=== PATIENT | male | born 1945 | race Caucasian/White ===

== ENCOUNTER → 2017-05-26 | Outpatient (CLI) | payer MEDICARE, BC ==
[2017-05-26 20:09] LABS: ADD MANUAL DIFFER YES; DIFF SLIDE NUMBER 275; MEAN CORPUSCULAR HEMOGLOBIN 26.9 pg (27.0-33.0); MEAN CORPUSCULAR HGB CONC 32.1 g/dl (32.0-36.5); MEAN CORPUSCULAR VOLUME 83.8 fl (80.0-96.0); RED CELL DISTRIBUTION WIDTH 14.1 % (11.5-14.5); WHITE BLOOD COUNT 11.8 K/mm3 (4.0-10.0)
[2017-05-26 21:13] LABS: EOSINOPHILS 2 % (0-5)
[2017-05-26 21:14] LABS: PLATELET CLUMPS MODERATE AMT
== END ==
LOC: M LRY 13:53
PROVIDERS: ATTEND Internal Medicine
DX: D69.6 Thrombocytopenia, unspecified (principal)

== ENCOUNTER → 2022-06-19 | Outpatient (CLI) | payer MEDICARE, BC | LOC: M RAD 10:22 | PROVIDERS: ATTEND Internal Medicine | DX: N28.1 Cyst of kidney, acquired (principal); N40.0 Benign prostatic hyperplasia without lower urinary tract symptoms ==

== ENCOUNTER 2023-09-20 11:29 | Inpatient (IN) | payer MEDICARE, BC ==
[~2023-09-20] VITALS: Ht 177.8 cm; Wt 88.1 kg
[2023-09-20] MEDS ORDERED: METO1TAB32 PO (11:58)
[2023-09-20] MEDS: NS 1,000 ML IV SCH ×2 (12:40→20:09)
[2023-09-20] MEDS ORDERED: LIDOCAINE 2% 5ML JELLY UROJET TOP ONE (12:45)
[2023-09-20 13:00] LABS: APPEARANCE, URINE MANUAL TURBID (CLEAR); BILIRUBIN, URINE MANUAL OBSCURED (NEGATIVE); COLOR, URINE MANUAL RED (YELLOW); GLUCOSE, URINE (UA) MANUAL NEGATIVE (NEGATIVE); KETONE, URINE MANUAL OBSCURED mg/dL (NEGATIVE); PROTEIN, URINE MANUAL OBSCURED mg/dL (NEGATIVE); UROBILINOGEN, URINE MANUAL OBSCURED mg/dl (NORMAL)
[2023-09-20 13:01] LABS: BLOOD URINE MANUAL POSITIVE (NEGATIVE); LEUKOCYTE ESTERASE, URINE MAN OBSCURED (NEGATIVE); NITRITE, URINE MANUAL OBSCURED (NEGATIVE)
[2023-09-20 13:03] LABS: RBC, URINE TNTC /hpf (0-3); WBC, URINE NONE SEEN /hpf (0-3)
[2023-09-20 13:04] LABS: BACTERIA, URINE NONE SEEN; HYALINE CAST, URINE NONE SEEN /lpf (0-1); SQUAMOUS EPITHELIAL CELL URINE NONE SEEN /hpf (SMALL AMT)
[2023-09-20 13:29] LABS: BASO # 0.1 10^3/uL (0.0-0.2); BASO % 0.3 % (0.0-1.0); EOS % 0.1 % (0.0-3.0); HEMATOCRIT 46.4 % (42.0-52.0); HEMOGLOBIN 14.5 g/dl (13.5-17.5); LYMPH # 1.3 10^3/uL (1.5-5.0); LYMPH % 4.3 % (24.0-44.0); MEAN CORPUSCULAR HEMOGLOBIN 25.5 pg (27.0-33.0); MEAN CORPUSCULAR HGB CONC 31.3 g/dl (32.0-36.5); MEAN CORPUSCULAR VOLUME 81.5 fl (80.0-96.0); MONO # 0.8 10^3/uL (0.0-0.8); MONO % 2.7 % (2.0-8.0); NEUTROPHILS # 26.8 10^3/uL (1.5-8.5); NEUTROPHILS % 91.9 % (36.0-66.0); RED BLOOD COUNT 5.69 10^6/uL (4.30-6.10); WHITE BLOOD COUNT 29.2 10^3/uL (4.0-10.0)
[2023-09-20 13:47] LABS: INR 1.12
[2023-09-20 13:53] LABS: ALBUMIN 3.6 G/DL (3.2-5.2); BILIRUBIN,DIRECT 0.3 MG/DL (<0.4); BILIRUBIN,TOTAL 0.7 MG/DL (0.3-1.2); TOTAL PROTEIN 7.6 G/DL (5.7-8.2)
[2023-09-20] MEDS ORDERED: MED REC IN PROGRESS XX SCH (17:25)
[2023-09-20 18:53] LABS: C REACTIVE PROTEIN QUANTITATIV 2.9 MG/DL (<1.0)
[2023-09-20 18:55] LABS: BLOOD UREA NITROGEN 24 MG/DL (9-23); CARBON DIOXIDE LEVEL 25 MMOL/L (20-31); CHLORIDE LEVEL 103 MMOL/L (98-107); GLOMERULAR FILTRATION RATE > 60.0 (>35); GLUCOSE, FASTING 108 MG/DL (74-106); POTASSIUM SERUM 4.7 MMOL/L (3.5-5.1); SODIUM LEVEL 139 MMOL/L (136-145)
[2023-09-20 19:07] LABS: PROCALCITONIN 12.27 ng/ml
[2023-09-20 20:00] VITALS: BP 110/68; TEMP 98.1; O2SAT 95
[2023-09-20] MEDS: cefTRIAXone SOD 1 GM in D5W MINI-BAG PLUS 50 ML IV SCH (20:09)
[2023-09-20] MEDS ORDERED: KP F1200 PO (21:13)
[2023-09-20] MEDS ORDERED: VITMTA PO (21:14)
[2023-09-20] MEDS ORDERED: ASPI81TA26 PO (21:15)
[2023-09-20] MEDS ORDERED: HOME MED LIST COMPLETE! XX SCH (21:20)
[2023-09-21 05:30] VITALS: BP 117/68; TEMP 97.7; O2SAT 94
[2023-09-21 06:07] LABS: HEMATOCRIT 36.1 % (42.0-52.0); MEAN CORPUSCULAR HEMOGLOBIN 25.5 pg (27.0-33.0); MEAN CORPUSCULAR HGB CONC 31.3 g/dl (32.0-36.5); MEAN CORPUSCULAR VOLUME 81.3 fl (80.0-96.0); RED BLOOD COUNT 4.44 10^6/uL (4.30-6.10); WHITE BLOOD COUNT 23.9 10^3/uL (4.0-10.0)
[2023-09-21 06:38] LABS: ALBUMIN 2.6 G/DL (3.2-5.2); ALKALINE PHOSPHATASE 141 U/L (46-116); ALT/SGPT 31 U/L (7.0-40); AST/SGOT 25 U/L (<34); BILIRUBIN,TOTAL 0.7 MG/DL (0.3-1.2); BLOOD UREA NITROGEN 20 MG/DL (9-23); CALCIUM LEVEL 8.4 MG/DL (8.3-10.6); CARBON DIOXIDE LEVEL 27 MMOL/L (20-31); CHLORIDE LEVEL 105 MMOL/L (98-107); CREATININE FOR GFR 0.94 MG/DL (0.70-1.30); GLOMERULAR FILTRATION RATE > 60.0 (>35); GLUCOSE, FASTING 95 MG/DL (74-106); POTASSIUM SERUM 4.2 MMOL/L (3.5-5.1); SODIUM LEVEL 140 MMOL/L (136-145); TOTAL PROTEIN 5.8 G/DL (5.7-8.2)
[2023-09-21] MEDS: NS 1,000 ML IV SCH (06:38)
[2023-09-21 07:08] LABS: HEMOGLOBIN 11.3 g/dl (13.5-17.5)
[2023-09-21] MEDS: TAMSULOSIN 0.4 MG CAP PO SCH (08:25)
[2023-09-21] MEDS: MULTIVITAMINS/MINERALS THERAP 1 TAB PO SCH (08:25)
[2023-09-21] MEDS: OMEGA-3 1000MG CAPSULE PO SCH (08:26)
[2023-09-21] MEDS ORDERED: METOPROLOL SUCC *XL* 12.5MG PER 1/2 TAB (TopROL *XL*) PO SCH (09:00)
[2023-09-21 11:18] LABS: HEMATOCRIT 35.9 % (42.0-52.0); HEMOGLOBIN 11.2 g/dl (13.5-17.5)
[2023-09-21 11:32] LABS: PLTBLUE- EDTA FREE MACHINE 148 10^3/uL (172-450)
[2023-09-21 14:00] VITALS: BP 107/56; TEMP 97.7; O2SAT 88
[2023-09-21 17:22] LABS: HEMOGLOBIN 11.3 g/dl (13.5-17.5)
[2023-09-21] MEDS: cefTRIAXone SOD 1 GM in D5W MINI-BAG PLUS 50 ML IV SCH (17:39)
[2023-09-21 20:20] VITALS: BP 122/71; TEMP 97.9; O2SAT 95
[2023-09-21 23:27] LABS: HEMATOCRIT 35.1 % (42.0-52.0); HEMOGLOBIN 11.1 g/dl (13.5-17.5)
[2023-09-22 05:30] VITALS: BP 132/73; TEMP 97.3; O2SAT 97
[2023-09-22 06:09] LABS: BASO % 0.2 % (0.0-1.0); EOS # 0.5 10^3/uL (0.0-0.5); EOS % 3.7 % (0.0-3.0); HEMATOCRIT 36.7 % (42.0-52.0); HEMOGLOBIN 11.5 g/dl (13.5-17.5); LYMPH # 2.6 10^3/uL (1.5-5.0); LYMPH % 19.4 % (24.0-44.0); MEAN CORPUSCULAR HEMOGLOBIN 25.6 pg (27.0-33.0); MEAN CORPUSCULAR HGB CONC 31.3 g/dl (32.0-36.5); MEAN CORPUSCULAR VOLUME 81.7 fl (80.0-96.0); MONO % 7.5 % (2.0-8.0); NEUTROPHILS # 9.4 10^3/uL (1.5-8.5); NEUTROPHILS % 68.8 % (36.0-66.0); RED BLOOD COUNT 4.49 10^6/uL (4.30-6.10); WHITE BLOOD COUNT 13.6 10^3/uL (4.0-10.0)
[2023-09-22 06:24] LABS: BLOOD UREA NITROGEN 17 MG/DL (9-23); CALCIUM LEVEL 8.4 MG/DL (8.3-10.6); CARBON DIOXIDE LEVEL 28 MMOL/L (20-31); CHLORIDE LEVEL 105 MMOL/L (98-107); CREATININE FOR GFR 0.93 MG/DL (0.70-1.30); GLOMERULAR FILTRATION RATE > 60.0 (>35); GLUCOSE, FASTING 103 MG/DL (74-106); MAGNESIUM LEVEL 1.8 MG/DL (1.8-2.4); POTASSIUM SERUM 4.2 MMOL/L (3.5-5.1); SODIUM LEVEL 139 MMOL/L (136-145)
[2023-09-22] MEDS ORDERED: CEFD300C42 PO (08:12)
[2023-09-22] MEDS ORDERED: FLOM0.4C39 PO (08:12)
[2023-09-22] MEDS: OMEGA-3 1000MG CAPSULE PO SCH (08:50)
[2023-09-22] MEDS: MULTIVITAMINS/MINERALS THERAP 1 TAB PO SCH (08:50)
[2023-09-22] MEDS: TAMSULOSIN 0.4 MG CAP PO SCH (08:50)
== END 2023-09-22 12:49 | disposition home or self-care (01) | DRG 699 ==
LOC: M ED 11:29 → M ED INP 17:31 → M MSPAV 19:54
PROVIDERS: ADMIT Internal Medicine; ATTEND Internal Medicine
DX: S37.39XA Other injury of urethra, initial encounter (principal); N39.0 Urinary tract infection, site not specified; T19.0XXA Foreign body in urethra, initial encounter; R31.0 Gross hematuria; R00.0 Tachycardia, unspecified; D72.829 Elevated white blood cell count, unspecified; Z79.899 Other long term (current) drug therapy; Z88.2 Allergy status to sulfonamides; Z88.8 Allergy status to other drugs, medicaments and biological substances; R33.9 Retention of urine, unspecified; N40.1 Benign prostatic hyperplasia with lower urinary tract symptoms; Y93.89 Activity, other specified; Y99.8 Other external cause status; X58.XXXA Exposure to other specified factors, initial encounter; Y92.018 Other place in single-family (private) house as the place of occurrence of the external cause

== ENCOUNTER → 2024-05-01 | Outpatient (REF) | payer MEDICARE, BC ==
[~2024-05-01] MED LIST: ASPI81TA26 PO; CEFD1CAP9 PO; FLOM0.4C39 PO; KP F1200 PO; METO1TAB32 PO; VITMTA PO
[2024-05-01 13:16] LABS: APPEARANCE, URINE HAZY (CLEAR); BACTERIA, URINE AUTO 1+ (NEGATIVE); BILIRUBIN, URINE AUTO NEGATIVE (NEGATIVE); BLOOD, URINE BLOOD NEGATIVE (NEGATIVE); COLOR, URINE AMBER (YELLOW); GLUCOSE, URINE (UA) AUTO NEGATIVE (NEGATIVE); KETONE, URINE AUTO NEGATIVE (NEGATIVE); LEUKOCYTE ESTERASE, URINE AUTO 3+ (NEGATIVE); MUCUS, URINE SMALL (NEGATIVE); NITRITE, URINE AUTO POSITIVE (NEGATIVE); PROTEIN, URINE AUTO NEGATIVE (NEGATIVE); RBC, URINE AUTO 3 /HPF (0-3); SPECIFIC GRAVITY URINE AUTO 1.021 (1.002-1.035); SQUAMOUS EPITHELIAL CELL UR AU 1 /HPF (0-6); UROBILINOGEN, URINE AUTO 0.2 mg/dL (0.0-2.0); WBC, URINE AUTO 64 /HPF (0-3)
== END ==
LOC: M SMT 12:55
PROVIDERS: ATTEND Physician Assistant
DX: R82.90 Unspecified abnormal findings in urine (principal)

== ENCOUNTER → 2024-06-09 | Outpatient (REF) | payer MEDICARE, BC ==
[2024-06-09 18:10] LABS: APPEARANCE, URINE CLOUDY (CLEAR); BACTERIA, URINE AUTO 3+ (NEGATIVE); BILIRUBIN, URINE AUTO NEGATIVE (NEGATIVE); BLOOD, URINE BLOOD NEGATIVE (NEGATIVE); COLOR, URINE AMBER (YELLOW); GLUCOSE, URINE (UA) AUTO NEGATIVE (NEGATIVE); KETONE, URINE AUTO NEGATIVE (NEGATIVE); LEUKOCYTE ESTERASE, URINE AUTO 3+ (NEGATIVE); MUCUS, URINE SMALL (NEGATIVE); NITRITE, URINE AUTO POSITIVE (NEGATIVE); PROTEIN, URINE AUTO 1+ mg/dL (NEGATIVE); RBC, URINE AUTO 11 /HPF (0-3); SPECIFIC GRAVITY URINE AUTO 1.024 (1.002-1.035); SQUAMOUS EPITHELIAL CELL UR AU 4 /HPF (0-6); UROBILINOGEN, URINE AUTO 0.2 mg/dL (0.0-2.0); WBC, URINE AUTO 146 /HPF (0-3)
== END ==
LOC: M SMT 17:02
PROVIDERS: ATTEND Physician Assistant
DX: R30.0 Dysuria (principal)

== ENCOUNTER → 2024-06-29 | Outpatient (REF) | payer MEDICARE, BC ==
[2024-06-29 17:12] LABS: APPEARANCE, URINE CLOUDY (CLEAR); BACTERIA, URINE AUTO 3+ (NEGATIVE); BILIRUBIN, URINE AUTO NEGATIVE (NEGATIVE); BLOOD, URINE BLOOD 2+ (NEGATIVE); COLOR, URINE YELLOW (YELLOW); GLUCOSE, URINE (UA) AUTO NEGATIVE (NEGATIVE); KETONE, URINE AUTO NEGATIVE (NEGATIVE); LEUKOCYTE ESTERASE, URINE AUTO 3+ (NEGATIVE); MUCUS, URINE SMALL (NEGATIVE); NITRITE, URINE AUTO POSITIVE (NEGATIVE); PROTEIN, URINE AUTO NEGATIVE (NEGATIVE); RBC, URINE AUTO 17 /HPF (0-3); SQUAMOUS EPITHELIAL CELL UR AU 1 /HPF (0-6); UROBILINOGEN, URINE AUTO 0.2 mg/dL (0.0-2.0); WBC, URINE AUTO TNTC /HPF (0-3)
== END ==
LOC: M SMT 16:52
PROVIDERS: ATTEND Physician Assistant
DX: R30.0 Dysuria (principal)

== ENCOUNTER → 2024-07-18 | Outpatient (CLI) | payer MEDICARE, BC ==
[2024-07-18 11:00] LABS: BASO # 0.1 10^3/uL (0.0-0.2); BASO % 0.5 % (0.0-1.0); EOS # 0.3 10^3/uL (0.0-0.5); EOS % 2.9 % (0.0-3.0); HEMATOCRIT 47.8 % (42.0-52.0); HEMOGLOBIN 14.7 g/dl (13.5-17.5); LYMPH # 3.5 10^3/uL (1.5-5.0); MEAN CORPUSCULAR HEMOGLOBIN 25.2 pg (27.0-33.0); MEAN CORPUSCULAR HGB CONC 30.8 g/dl (32.0-36.5); MONO # 0.8 10^3/uL (0.0-0.8); MONO % 7.3 % (2.0-8.0); NEUTROPHILS # 6.3 10^3/uL (1.5-8.5); NEUTROPHILS % 57.1 % (36.0-66.0); RED BLOOD COUNT 5.83 10^6/uL (4.30-6.10)
== END ==
LOC: M PLALAB 07:04
PROVIDERS: ATTEND Internal Medicine
DX: D35.00 Benign neoplasm of unspecified adrenal gland (principal); E78.00 Pure hypercholesterolemia, unspecified; I10 Essential (primary) hypertension

== ENCOUNTER → 2024-07-25 | Outpatient (CLI) | payer MEDICARE, BC ==
[2024-07-25 14:48] LABS: ALBUMIN 3.4 G/DL (3.2-5.2); ALKALINE PHOSPHATASE 175 U/L (46-116); ALT/SGPT 30 U/L (7.0-40); AST/SGOT 24 U/L (<34); BILIRUBIN,DIRECT 0.2 MG/DL (<0.4); BILIRUBIN,TOTAL 0.6 MG/DL (0.3-1.2); BLOOD UREA NITROGEN 22 MG/DL (9-23); CALCIUM LEVEL 9.2 MG/DL (8.3-10.6); CARBON DIOXIDE LEVEL 28 MMOL/L (20-31); CHLORIDE LEVEL 105 MMOL/L (98-107); CHOLESTEROL LEVEL 200 MG/DL (<200); CHOLESTEROL RISK RATIO 3.25 (<5); CREATININE FOR GFR 1.05 MG/DL (0.70-1.30); GLOMERULAR FILTRATION RATE > 60.0 (>35); GLUCOSE, FASTING 80 MG/DL (74-106); HDL CHOLESTEROL 61.5 MG/DL (>40); LDL CHOLESTEROL 126.7 MG/DL (<100); NON-HDL-C 138.5 MG/DL; POTASSIUM SERUM 4.8 MMOL/L (3.5-5.1); SODIUM LEVEL 137 MMOL/L (136-145); TOTAL PROTEIN 7.2 G/DL (5.7-8.2); TRIGLYCERIDES LEVEL 59 MG/DL (<150)
[2024-07-25 14:49] LABS: ESTRADIOL 25.5 PG/ML (<39.8); TESTOSTERONE 513 NG/DL (241-827)
[2024-07-26 08:21] LABS: DEHYDROEPIANDROSTERONE SULFATE 77 mcg/dL (3-225)
[2024-08-03 03:32] LABS: 17 HYDROXY PROGESTERONE 49 ng/dL (37-129)
== END ==
LOC: M LAB 12:10
PROVIDERS: ATTEND Internal Medicine
DX: D35.00 Benign neoplasm of unspecified adrenal gland (principal); E78.00 Pure hypercholesterolemia, unspecified

== ENCOUNTER → 2024-07-27 | Outpatient (CLI) | payer MEDICARE, BC | LOC: M LAB 07:20 | PROVIDERS: ATTEND Internal Medicine | DX: D35.00 Benign neoplasm of unspecified adrenal gland (principal) ==